=== PATIENT | male | born 1990 | race Caucasian/White ===

== ENCOUNTER 2016-06-28 13:56 | Emergency (ER) | payer BC ==
--- NOTE | ~2016-06-28 | CR63 ---
[facility] A Service of [facility] RADIOLOGY TEXT RESULTS PATIENT: FRACISCO WEST LOCATION: SED : 91 UNIT #: [id number] AGE: [address]: Laina Gatica APRN SEX: M ORDER DR: [id number] [id number] E MR#: [id number] Acc #: [id number] NAME: FRACISCO WEST : 1990 SEX: M STUDY DATE/TIME: 06/28/2016 13:46 UNIT: SED ROOM: STUDY DESCRIPTION: CR Chest 2 View Attending Physician: Laina Gatica A.P.R.N. Ordering Physician: Laina Gatica A.P.R.N. Primary Care Physician: Flaco Gomez M.D. MEDICAL IMAGING REPORT This report is preliminary unless electronic signature is present. EXAM Chest x-ray 06/28/2016. HISTORY 25-year-old male in the ED complaining of 1-week history of fever, body aches, cough and headache. TECHNIQUE PA and lateral upright chest series. FINDINGS The examination shows dense airspace consolidation within the medial segment right middle lobe and the posterior basal segment left lower lobe. Findings likely represent infectious pneumonitis, correlate clinically. Remaining portions of both lungs are clear. No pleural effusion. Heart size and pulmonary vascularity are normal. IMPRESSION Bilateral segmental airspace consolidation as noted above. Infectious pneumonitis is likely. Dictated by... Carter Carroll M.D. THIS IS AN ELECTRONICALLY VERIFIED REPORT Carter Carroll M.D. at 06/29/2016 8:40 AM RGW/yesica TD: 06/28/2016 20:49 [facility] A Service [facility] RADIOLOGY TEXT RESULTS PATIENT: FRACISCO WEST LOCATION: SED : 91 UNIT #: [id number] AGE: [address]: Laina Gatica APRN SEX: M ORDER DR: DEVIN #: [id number] MEDICAL IMAGING REPORT
[2016-06-28 13:57] LABS: INFLUENZA A NEG (NEG); INFLUENZA B NEG (NEG)
[2016-06-28 15:08] LABS: BASOPHIL% 0.2 % (0-2.5); HEMATOCRIT 45.9 % (38.0-50.0); HEMOGLOBIN 15.9 gm/dL (13.0-16.0); LYMPHOCYTE% 7.3 % (17.0-45.0); MEAN CELL VOLUME 94.9 FL (83-96); MEAN CORPUSCULAR HEMOGLOBIN 32.8 PG (28-34); MEAN CORPUSCULAR HGB CONC 34.6 g/dL (30-36); MEAN PLATELET VOLUME 7.6 FL (6.5-11.5); MONOCYTE# 0.6 X10e3 (0-1.0); NEUTROPHIL# 12.2 X10e3 (1.5-7.1); NEUTROPHIL% 88.5 % (40-75); PLATELET COUNT 225 X10e3 (140-420); RED BLOOD COUNT 4.84 X10e (3.90-5.60); RED CELL DISTRIBUTION WIDTH 13.1 % (11.0-15.5); WHITE BLOOD COUNT 13.8 X10e3 (4.0-10.5)
[2016-06-28 15:14] LABS: DIFF IND NO
[2016-06-28 15:27] LABS: ALBUMIN SERUM 3.6 g/dL (3.5-5.0); ALKALINE PHOSPHATASE 51 U/L (32-92); ALT (SGPT) 14 U/L (10-40); AST (SGOT) 18 U/L (10-42); BILIRUBIN,TOTAL 0.9 mg/dL (0.2-2.0); BLOOD UREA NITROGEN 17 mg/dL (9-23); CALCIUM SERUM 8.8 mg/dL (8.4-10.2); CARBON DIOXIDE 23 mmol/L (22-31); CHLORIDE 101 mmol/L (100-111); GLOM FILT RATE Estimated ABOVE60 mL/min (>60); GLUCOSE FASTING 114 mg/dL (70-110); POTASSIUM 3.3 mmol/L (3.5-5.1); PROTEIN TOTAL SERUM 7.1 g/dL (6.0-8.3); SODIUM 133 mmol/L (135-145)
== END 2016-06-28 16:09 | disposition home or self-care (01) ==
LOC: SED 13:56
PROVIDERS: Nurse Practitioner
DX: J18.9 Pneumonia, unspecified organism (principal); F17.200 Nicotine dependence, unspecified, uncomplicated; Z88.2 Allergy status to sulfonamides
CPT/HCPCS: 36415; 71020; 80053; 85025; 87651; 87804; 87880; 99283; J0696